=== PATIENT | female | born 1990 | race American Indian/Alaskan Native ===

== ENCOUNTER 2017-06-16 12:16 | Emergency (ER) | payer SELFPAY ==
[2017-06-16] MEDS ORDERED: DUONEB *Not for PRN Use IH ONE (12:59)
--- NOTE | 2017-06-16 12:59 | Emergency Department Report ---
Chief Complaint: Headache Stated Complaint: COUGH/HEADACHE Time Seen by Provider: 06/16/17 12:43 - HPI History of Present Illness: pt c/o headache that radiates to her low back pt states she has been coughing for 3 days. PT states she has hx of brain aneurysm - ROS Review of Systems: + dry cough - fever - n/v - Exam Physical Exam: PT looks well, non toxic + wheezing delia gcs 15 MSE screening note: Focused history and physical exam performed. Due to findings the following was ordered: med, ct ED Disposition for MSE Condition: Stable
--- NOTE | 2017-06-16 14:07 | Cat Scan Report ---
CT HEAD WITHOUT CONTRAST: HISTORY: Headache. Serial contiguous axial images were obtained through the cranium. Intravenous contrast material was not administered. The ventricles are normal in size and appearance. There is no mass effect or midline shift. No areas of abnormally increased or decreased attenuation are seen. No mass lesion is seen. Previous surgical coiling of an aneurysm is noted along the right side of the [place]. The mastoid air cells and visualized portions of the sinuses are normal. IMPRESSION: No acute intracranial process.
[2017-06-16] MEDS ORDERED: FIORICET PO ONE (16:25)
[2017-06-16] MEDS ORDERED: PERCOCET 5/325 PO ONE (16:25)
[2017-06-16 16:30] VITALS: BP 133/78
--- NOTE | 2017-06-16 16:37 | Emergency Department Report ---
ED Headache HPI - General Chief Complaint: Headache Stated Complaint: COUGH/HEADACHE Time Seen by Provider: 06/16/17 12:43 - History of Present Illness Initial Comments: Patient is a 27-year-old female past medical history of brain aneurysm status post coiling who presents with headache that has occurred after coughing. Patient states that she is having a headache that is an 8 out of 10 located to the back of her head. It radiates to her shoulder and back. It is constant. It is an achy type of pain. She states that the headache onset was gradual. This does not feel as bad though as when she had a brain aneurysm. Patient states that the cough started her headache. She states that she has been coughing now for the last couple days. She states that she's been taking some ydwf-jao-bodshqu medication for her cough has improved it a little bit. She denies having any fever. Allergies/Adverse Reactions: Allergies No Known Allergies Allergy (Verified 06/16/17 15:24) Home Medications: Ambulatory Orders Benzonatate [Tessalon Perles] 100 mg PO Q8HR #30 capsule 06/16/17 Butalb/Acetamin/Caff 50-325-40 [Fioricet] 1 tab PO Q6HR PRN #20 tab 06/16/17 ED Review of Systems ROS: Stated complaint: COUGH/HEADACHE Other details as noted in HPI Constitutional: denies: chills, fever Eyes: denies: eye pain, eye discharge, vision change ENT: denies: ear pain, throat pain Respiratory: cough. denies: shortness of breath, wheezing Cardiovascular: denies: chest pain, palpitations Endocrine: no symptoms reported Gastrointestinal: denies: abdominal pain, nausea, diarrhea Genitourinary: denies: urgency, dysuria, discharge Musculoskeletal: denies: back pain, joint swelling, arthralgia Skin: denies: rash, lesions Neurological: headache. denies: weakness, paresthesias Psychiatric: denies: anxiety, depression Hematological/Lymphatic: denies: easy bleeding, easy bruising ED Past Medical Hx - Past Medical History Previous Medical History?: Yes Hx Headaches / Migraines: Yes Hx Asthma: Yes Additional medical history: AFIB. BRAIN ANURESUM - Surgical History Past Surgical History?: Yes Additional Surgical History: - Social History Smoking Status: Light Tobacco Smoker Substance Use Type: Alcohol - Medications Home Medications: Home Medications Medication Instructions Recorded Confirmed Last Taken Type Benzonatate [Tessalon Perles] 100 mg PO Q8HR #30 capsule 06/16/17 Unknown Rx Butalb/Acetamin/Caff 50-325-40 1 tab PO Q6HR PRN #20 tab 06/16/17 Unknown Rx [Fioricet] ED Physical Exam - General Limitations: No Limitations General appearance: alert, in no apparent distress - Head Head exam: Present: atraumatic, normocephalic - Eye Eye exam: Present: normal appearance - ENT ENT exam: Present: mucous membranes moist - Neck Neck exam: Present: normal inspection - Respiratory Respiratory exam: Present: normal lung sounds bilaterally. Absent: respiratory distress - Cardiovascular Cardiovascular Exam: Present: regular rate, normal rhythm. Absent: systolic murmur, diastolic murmur, rubs, gallop - GI/Abdominal GI/Abdominal exam: Present: soft, normal bowel sounds - Extremities Exam Extremities exam: Present: normal inspection - Back Exam Back exam: Present: normal inspection - Neurological Exam Neurological exam: Present: alert, oriented X3 - Psychiatric Psychiatric exam: Present: normal affect, normal mood - Skin Skin exam: Present: warm, dry, intact, normal color. Absent: rash ED Course Vital Signs 06/16/17 06/16/17 06/16/17 12:52 14:30 14:40 Temperature 98.8 F Pulse Rate 91 H Pulse Rate [ Anterior Bilateral Throughout] Pulse Rate [ 90 96 H Bilateral Throughout] Respiratory 16 Rate Respiratory Rate [Anterior Bilateral Throughout] Respiratory 20 20 Rate [Bilateral Throughout] Blood Pressure 137/79 Blood Pressure [Right] O2 Sat by Pulse 99 Oximetry 06/16/17 06/16/17 06/16/17 15:10 16:30 17:11 Temperature Pulse Rate 96 H Pulse Rate [ 82 Anterior Bilateral Throughout] Pulse Rate [ Bilateral Throughout] Respiratory 20 18 Rate Respiratory 20 Rate [Anterior Bilateral Throughout] Respiratory Rate [Bilateral Throughout] Blood Pressure Blood Pressure 133/78 [Right] O2 Sat by Pulse 97 Oximetry 06/16/17 17:25 Temperature Pulse Rate Pulse Rate [ 84 Anterior Bilateral Throughout] Pulse Rate [ Bilateral Throughout] Respiratory Rate Respiratory 20 Rate [Anterior Bilateral Throughout] Respiratory Rate [Bilateral Throughout] Blood Pressure Blood Pressure [Right] O2 Sat by Pulse Oximetry - Reevaluation(s) Reevaluation #1: 06/16/17 17:52 Patient is feeling better after breathing treatment her headache is better to all sent patient home with Fioricet and Tessalon Perles. ED Medical Decision Making - Radiology Data Radiology results: report reviewed, image reviewed CT head shows: No acute intracranial process. - Medical Decision Making Chief medical diagnosis: Sinus headache Differential medical diagnosis: Intracranial bleed, tension headache I will get CT head and I will give patient a breathing treatment, Tessalon Perles and, oral Fioricet, and hydrocodone. Patient's symptoms are most likely a sinus headache secondary to her upper respiratory tract symptoms I will send patient home with follow-up and return precautions. Initial verbal discharge instructions were given. Critical care attestation.: If time is entered above; I have spent that time in minutes in the direct care of this critically ill patient, excluding procedure time. ED Disposition Clinical Impression: Sinus headache, Cough, Brain aneurysm Disposition: TO HOME OR SELFCARE Is pt being admited?: No Does the pt Need Aspirin: No Condition: Stable Prescriptions: Benzonatate [Tessalon Perles] 100 mg PO Q8HR #30 capsule Butalb/Acetamin/Caff 50-325-40 [Fioricet] 1 tab PO Q6HR PRN #20 tab PRN Reason: Headache Referrals: PRIMARY CARE, [Primary Care Provider] - 3-5 Days MIRIAM DE LEÓN MD [Staff Physician] - 3-5 Days Forms: Work/School Release Form(ED) Time of Disposition: 18:02
[2017-06-16] MEDS ORDERED: PROVENTIL IH ONE (16:56)
[2017-06-16] MEDS ORDERED: TESSALON PERLES PO ONE (16:57)
== END 2017-06-16 18:09 | disposition home or self-care (01) ==
LOC: ED 12:16
DX: R51 Headache (principal); R05 Cough; I67.1 Cerebral aneurysm, nonruptured; G43.909 Migraine, unspecified, not intractable, without status migrainosus; J45.909 Unspecified asthma, uncomplicated; F17.200 Nicotine dependence, unspecified, uncomplicated
CPT/HCPCS: 70450; 94640

== ENCOUNTER 2017-06-19 20:50 | Emergency (ER) | payer SELFPAY ==
[2017-06-19 21:58] LABS: Basophils % (Auto) 0.8 % (0.0-1.8); Eosinophils % (Auto) 5.4 % (0.0-4.3); Hemoglobin 10.7 gm/dl (10.1-14.3); Mean Corpuscular HGB Conc 33 % (30-34); Mean Corpuscular Volume 79 fl (79-97); Platelet Count 342 K/mm3 (140-440); Red Blood Count 4.19 M/mm3 (3.65-5.03); Red Cell Distribution Width 14.8 % (13.2-15.2); White Blood Count 6.6 K/mm3 (4.5-11.0)
[2017-06-19 22:03] LABS: Mean Corpuscular Hemoglobin 26 pg (28-32)
[2017-06-19 22:08] LABS: INR 0.89 (0.87-1.13); Partial Thromboplastin Time 25.5 Sec. (24.2-36.6)
[2017-06-19 22:21] LABS: Alanine Aminotransferase 10 units/L (7-56); Albumin 4.1 g/dL (3.9-5); Albumin/Globulin Ratio 1.1 %; Alkaline Phosphatase 56 units/L (35-129); Anion Gap 17 mmol/L; Blood Urea Nitrogen 9 mg/dL (7-17); Calcium 9.4 mg/dL (8.4-10.2); Carbon Dioxide 26 mmol/L (22-30); Glucose 95 mg/dL (65-100); Potassium 3.9 mmol/L (3.6-5.0); Sodium 138 mmol/L (137-145)
[2017-06-19 23:06] VITALS: BP 137/78
[2017-06-20] MEDS ORDERED: PROVENTIL IH ONE ×2 (00:40→00:45)
[2017-06-20] MEDS ORDERED: ZOFRAN IV ONE (01:21)
[2017-06-20] MEDS ORDERED: MORPHINE IV ONE (01:21)
[2017-06-20] MEDS ORDERED: ROCEPHIN/NS 2 GM/100 ML 2 GM/100 ML BAG IV ONE (01:21)
--- NOTE | 2017-06-20 01:24 | Emergency Department Report ---
HPI - General Chief Complaint: Headache Time Seen by Provider: 06/20/17 01:17 - HPI HPI: Patient presents to ED with cough, congestion or cough is productive of white sputum. Patient with history of an aneurysm also complaining of a headache but is not the worse her neck over life. She states she had a chronic headache that she takes Goody powder, Tylenol at home for. She was seen in the ED 2 days ago given Fioricet which only helped her symptoms minimally. patient denies any fever, chills, night sweats. ED Past Medical Hx - Past Medical History Previous Medical History?: Yes Hx Headaches / Migraines: Yes Hx Asthma: Yes Additional medical history: AFIB. BRAIN ANURESUM - Surgical History Past Surgical History?: Yes Additional Surgical History: - Social History Smoking Status: Never Smoker Substance Use Type: None - Medications Home Medications: Home Medications Medication Instructions Recorded Confirmed Last Taken Type Benzonatate [Tessalon Perles] 100 mg PO Q8HR #30 capsule 06/16/17 Unknown Rx Butalb/Acetamin/Caff 50-325-40 1 tab PO Q6HR PRN #20 tab 06/16/17 Unknown Rx [Fioricet] Azithromycin [Zithromax Z-MAL] 250 mg PO DAILY #6 tablet 06/20/17 Unknown Rx ED Review of Systems ROS: Stated complaint: COUGH/MILLICENT/OCONNOR Other details as noted in HPI Comment: All other systems reviewed and negative Respiratory: cough, wheezing Neurological: headache Physical Exam - Physical Exam Vital Signs: Vital Signs 06/19/17 06/19/17 06/19/17 21:25 23:02 23:05 Temperature 98.8 F 98 F Pulse Rate 80 85 Respiratory 20 20 20 Rate Blood Pressure 144/91 137/78 O2 Sat by Pulse 99 97 Oximetry Physical Exam: - General Limitations: No Limitations General appearance: alert, in no apparent distress - Head Head exam: Present: atraumatic, normocephalic - Eye Eye exam: Present: normal appearance - ENT ENT exam: Present: mucous membranes moist - Neck Neck exam: Present: normal inspection - Respiratory Respiratory exam: Present: Bilateral expiratory wheezing with coarse breath sounds on the left. - Cardiovascular Cardiovascular Exam: Present: normal rhythm, tachycardia. Absent: systolic murmur, diastolic murmur, rubs, gallop - GI/Abdominal GI/Abdominal exam: Present: soft, normal bowel sounds - Extremities Exam Extremities exam: Present: normal inspection - Back Exam Back exam: Present: normal inspection - Neurological Exam Neurological exam: Present: alert, oriented X3, - Skin Skin exam: Present: warm, dry, intact, normal color. Absent: rash ED Course Vital Signs 06/19/17 06/19/17 06/19/17 21:25 23:02 23:05 Temperature 98.8 F 98 F Pulse Rate 80 85 Respiratory 20 20 20 Rate Blood Pressure 144/91 137/78 O2 Sat by Pulse 99 97 Oximetry ED Medical Decision Making - Lab Data Result diagrams: 06/19/17 21:44 06/19/17 21:44 Critical care attestation.: If time is entered above; I have spent that time in minutes in the direct care of this critically ill patient, excluding procedure time. ED Disposition Clinical Impression: Acute bronchitis Qualifiers: Bronchitis organism: unspecified organism Qualified Code(s): J20.9 - Acute bronchitis, unspecified Chronic headache Qualifiers: Headache type: tension-type Intractability: not intractable Qualified Code(s): G44.229 - Chronic tension-type headache, not intractable Disposition: DC-01 TO HOME OR SELFCARE Is pt being admited?: No Does the pt Need Aspirin: No Condition: Stable Instructions: Acute Bronchitis (ED) Prescriptions: Azithromycin [Zithromax Z-MAL] 250 mg PO DAILY #6 tablet Referrals: PRIMARY CARE, [Primary Care Provider] - 3-5 Days
[2017-06-20] MEDS ORDERED: NACL ONE (01:35)
== END 2017-06-20 02:34 | disposition home or self-care (01) ==
LOC: ED 20:50
DX: J20.9 Acute bronchitis, unspecified (principal); G43.909 Migraine, unspecified, not intractable, without status migrainosus; J45.909 Unspecified asthma, uncomplicated
CPT/HCPCS: 36415; 80053; 81025; 85025; 85610; 85730; 96365; 96375; 99283; J0696; J2270; J2405

== ENCOUNTER 2017-12-27 22:32 | Emergency (ER) | payer SELFPAY ==
[2017-12-27 22:40] VITALS: BP 135/82
[2017-12-27] MEDS ORDERED: NORCO 7.5/325 PO ONE (23:00)
--- NOTE | 2017-12-27 23:04 | Emergency Department Report ---
ED ENT HPI - General Chief complaint: Sore Throat Stated complaint: HEADACHE,SORE THROAT Time Seen by Provider: 12/27/17 23:00 Source: patient Mode of arrival: Ambulatory Limitations: No Limitations - History of Present Illness Initial comments: 27-year-old female comes in with complaint of sore throat Y spots on her tonsils. She reports that it hurts to swallow and this isn't going on for 2 days. Patient does have a past medical history of A. fib, brain aneurysm with rupture". Patient has no primary care provider. She is allergic to Dilaudid and Tamiflu. She reports that she is able to take hydrocodone Percocet and [place]. MD complaint: sore throat -: days(s) (2) Location: throat Severity: severe Severity scale (0 -10): 7 Quality: stabbing, aching Consistency: constant Improves with: none Worsens with: swallowing Associated Symptoms: denies: fever, cough, toothache - Related Data Previous Rx's Medication Instructions Recorded Last Taken Type Benzonatate [Tessalon Perles] 100 mg PO Q8HR #30 capsule 06/16/17 Unknown Rx Butalb/Acetamin/Caff 50-325-40 1 tab PO Q6HR PRN #20 tab 06/16/17 Unknown Rx [Fioricet] Azithromycin [Zithromax Z-MAL] 250 mg PO DAILY #6 tablet 06/20/17 Unknown Rx Hydrocodone/Chlorphen Polis(Nf 5 ml PO Q12H PRN #200 ml 06/20/17 Unknown Rx [Tussionex (Nf)] Amoxicillin [Amoxicillin TAB] 875 mg PO BID #20 tablet 12/27/17 Unknown Rx Ibuprofen 800 mg PO Q8H PRN #15 tablet 12/27/17 Unknown Rx Allergies Allergy/AdvReac Type Severity Reaction Status Date / Time hydromorphone [From Dilaudid] AdvReac Shortness Verified 12/27/17 22:37 of Breath oseltamivir [From Tamiflu] AdvReac Shortness Verified 12/27/17 22:37 of Breath ED Dental HPI - General Chief complaint: Sore Throat Stated complaint: HEADACHE,SORE THROAT Time Seen by Provider: 12/27/17 23:00 Source: patient Mode of arrival: Ambulatory Limitations: No Limitations - Related Data Previous Rx's Medication Instructions Recorded Last Taken Type Benzonatate [Tessalon Perles] 100 mg PO Q8HR #30 capsule 06/16/17 Unknown Rx Butalb/Acetamin/Caff 50-325-40 1 tab PO Q6HR PRN #20 tab 06/16/17 Unknown Rx [Fioricet] Azithromycin [Zithromax Z-MAL] 250 mg PO DAILY #6 tablet 06/20/17 Unknown Rx Hydrocodone/Chlorphen [place]is(Nf 5 ml PO Q12H PRN #200 ml 06/20/17 Unknown Rx [Tussionex (Nf)] Amoxicillin [Amoxicillin TAB] 875 mg PO BID #20 tablet 12/27/17 Unknown Rx Ibuprofen 800 mg PO Q8H PRN #15 tablet 12/27/17 Unknown Rx Allergies Allergy/AdvReac Type Severity Reaction Status Date / Time hydromorphone [From Dilaudid] AdvReac Shortness Verified 12/27/17 22:37 of Breath oseltamivir [From Tamiflu] AdvReac Shortness Verified 12/27/17 22:37 of Breath ED Review of Systems ROS: Stated complaint: HEADACHE,SORE THROAT Other details as noted in HPI Constitutional: denies: chills, fever Eyes: denies: eye pain, eye discharge, vision change ENT: throat pain, congestion (nasal). denies: ear pain Respiratory: denies: cough, shortness of breath, wheezing Cardiovascular: denies: chest pain, palpitations Endocrine: no symptoms reported Gastrointestinal: denies: abdominal pain, nausea, diarrhea Genitourinary: denies: urgency, dysuria, discharge Musculoskeletal: denies: back pain, joint swelling, arthralgia Skin: denies: rash, lesions Neurological: denies: headache, weakness, paresthesias Psychiatric: denies: anxiety, depression Hematological/Lymphatic: denies: easy bleeding, easy bruising ED Past Medical Hx - Past Medical History Hx Headaches / Migraines: Yes Hx Asthma: Yes Additional medical history: AFIB. BRAIN ANURESUM - Surgical History Additional Surgical History: - Social History Smoking Status: Current Some Day Smoker Substance Use Type: Alcohol - Medications Home Medications: Home Medications Medication Instructions Recorded Confirmed Last Taken Type Benzonatate [Tessalon Perles] 100 mg PO Q8HR #30 capsule 06/16/17 Unknown Rx Butalb/Acetamin/Caff 50-325-40 1 tab PO Q6HR PRN #20 tab 06/16/17 Unknown Rx [Fioricet] Azithromycin [Zithromax Z-MAL] 250 mg PO DAILY #6 tablet 06/20/17 Unknown Rx Hydrocodone/Chlorphen [place]is(Nf 5 ml PO Q12H PRN #200 ml 06/20/17 Unknown Rx [Tussionex (Nf)] Amoxicillin [Amoxicillin TAB] 875 mg PO BID #20 tablet 12/27/17 Unknown Rx Ibuprofen 800 mg PO Q8H PRN #15 tablet 12/27/17 Unknown Rx ED Physical Exam - General Limitations: No Limitations General appearance: alert, in no apparent distress - Head Head exam: Present: atraumatic, normocephalic - Eye Eye exam: Present: normal appearance - ENT ENT exam: Present: mucous membranes moist - Expanded ENT Exam Expanded Mouth exam: Present: normal external inspection Throat exam: Positive: tonsillar erythema, tonsillomegaly, tonsillar exudate - Neck Neck exam: Present: normal inspection, full ROM, lymphadenopathy - Respiratory Respiratory exam: Present: normal lung sounds bilaterally. Absent: respiratory distress - Cardiovascular Cardiovascular Exam: Present: regular rate, normal rhythm. Absent: systolic murmur, diastolic murmur, rubs, gallop - GI/Abdominal GI/Abdominal exam: Present: soft, normal bowel sounds - Extremities Exam Extremities exam: Present: normal inspection - Back Exam Back exam: Present: normal inspection - Neurological Exam Neurological exam: Present: alert, oriented X3 - Psychiatric Psychiatric exam: Present: normal affect, normal mood - Skin Skin exam: Present: warm, dry, intact, normal color. Absent: rash ED Course Vital Signs 12/27/17 22:37 Temperature 98.2 F Pulse Rate 92 H Respiratory 16 Rate Blood Pressure 135/82 O2 Sat by Pulse 98 Oximetry ED Medical Decision Making - Medical Decision Making Patient has been evaluated by this provider fast track. I discussed the patient that we will treat her for pharyngitis with amoxicillin. Discussed the patient I give her [place] for pain management and discharge her home with ibuprofen. Discussed with patient that she needs to find a primary care provider and resident surgeon. Patient verbalized understanding. Critical care attestation.: If time is entered above; I have spent that time in minutes in the direct care of this critically ill patient, excluding procedure time. ED Disposition Clinical Impression: Pharyngitis Qualifiers: Pharyngitis/tonsillitis etiology: unspecified etiology Qualified Code(s): J02.9 - Acute pharyngitis, unspecified Disposition: TO HOME OR SELFCARE Is pt being admited?: No Does the pt Need Aspirin: No Condition: Stable Instructions: Pharyngitis (ED) Additional Instructions: Take pain medication and antibiotics as prescribed. Follow-up with the primary care provider for further evaluation. Prescriptions: Amoxicillin [Amoxicillin TAB] 875 mg PO BID #20 tablet Ibuprofen 800 mg PO Q8H PRN #15 tablet PRN Reason: Pain Referrals: [facility] [Provider Group] - 3-5 Days [facility] [Provider Group] - 3-5 Days Forms: Work/School Release Form(ED)
== END 2017-12-27 23:23 | disposition home or self-care (01) ==
LOC: ED 22:32
DX: J02.9 Acute pharyngitis, unspecified (principal); G43.909 Migraine, unspecified, not intractable, without status migrainosus; F17.200 Nicotine dependence, unspecified, uncomplicated; Z88.6 Allergy status to analgesic agent; Z88.8 Allergy status to other drugs, medicaments and biological substances
CPT/HCPCS: 99282